=== PATIENT | male | born 1970 ===

== ENCOUNTER 2019-08-03 14:53 | Emergency (ER) | payer OTHER ==
--- NOTE | 2019-08-03 15:12 | ED ---
Fall HPI - General Chief Complaint: Fall Stated Complaint: back pain Time Seen by Provider: 08/03/19 14:56 Source: patient, EMS Mode of arrival: EMS - History of Present Illness Initial Comments: This is a 48-year-old male date ER status post fall. Patient is complaining of severe left arm pain and back pain unable to ambulate at the scene. No loss of consciousness. Patient was doing some work on a roof trying to reach fell off a platform he did land on his back and back onto his buttocks and back onto his back which he did catch himself with his hands severe left wrist pain. No.his head, no loss of consciousness patient denying drug or alcohol abuse today MD Complaint: fall -: hour(s) Fall From: standing When Fall Occurred: 1 hour [employer] Fall Witnessed: no Place Fall Occurred: home Loss of Consciousness: none Prolonged Down Time?: no Symptoms Prior to Fall: none Location: back Severity: mild Severity scale (1-10): 4 Quality: sharp, stabbing Context: tripped/slipped Associated Symptoms: denies - Related Data Home Medications Medication Instructions Recorded Confirmed Ibuprofen [Motrin Ib] 400 - 600 mg PO Q6H PRN 08/03/19 08/03/19 Previous Rx's Medication Instructions Recorded HYDROcodone/APAP 5-325MG [[place] 1 tab PO Q6HR PRN #12 tab 08/03/19 5-325] Allergies Allergy/AdvReac Type Severity Reaction Status Date / Time No Known Allergies Allergy Verified 08/03/19 17:31 Review of Systems ROS Statement: Those systems with pertinent positive or pertinent negative responses have been documented in the HPI. ROS Other: All systems not noted in ROS Statement are negative. Past Medical History Past Medical History: No Reported History Past Surgical History: No Surgical Hx Reported Smoking Status: Current every day smoker Past Alcohol Use History: Occasional Past Drug Use History: None Reported General Exam Limitations: no limitations General appearance: alert, in no apparent distress Head exam: Present: atraumatic, normocephalic, normal inspection Eye exam: Present: normal appearance, PERRL, EOMI. Absent: scleral icterus, conjunctival injection, periorbital swelling ENT exam: Present: normal exam, mucous membranes moist Neck exam: Present: normal inspection. Absent: tenderness, meningismus, lymphadenopathy Respiratory exam: Present: normal lung sounds bilaterally. Absent: respiratory distress, wheezes, rales, rhonchi, stridor Cardiovascular Exam: Present: regular rate, normal rhythm, normal heart sounds. Absent: systolic murmur, diastolic murmur, rubs, gallop, clicks GI/Abdominal exam: Present: soft, normal bowel sounds. Absent: distended, tenderness, guarding, rebound, rigid Extremities exam: Present: normal inspection, full ROM, normal capillary refill. Absent: tenderness, pedal edema, joint swelling, calf tenderness Back exam: Present: normal inspection Neurological exam: Present: alert, oriented X3, CN II-XII intact Psychiatric exam: Present: normal affect, normal mood Skin exam: Present: warm, dry, intact, normal color. Absent: rash Course Vital Signs 08/03/19 08/03/19 08/03/19 14:54 16:15 18:48 Temperature 97.8 F 98.2 F Pulse Rate 108 H 104 H 112 H Respiratory 22 19 20 Rate Blood Pressure 134/89 138/86 150/104 O2 Sat by Pulse 98 97 98 Oximetry 08/03/19 20:10 Temperature 97.8 F Pulse Rate 107 H Respiratory 18 Rate Blood Pressure 147/93 O2 Sat by Pulse 100 Oximetry - Reevaluation(s) Reevaluation #1: medical record has been reviewed patient is able to bear weight with cane here in the ER unable to ambulate pain is actually controlled no neurological deficit [facility] evaluation and treatment patient informed regarding symptoms to watch for regarding back fracture wrist fracture splinted here in the ER Procedures - Orthopedic Fracture Reduction Fracture #1 Consent Obtained: verbal consent Side: left Fracture Reduction Location: radius Analgesia: hematoma block Technique: direct manipulation, traction/counter-traction Post Reduction X-rays Demonstrate: anatomical reduction Post-Reduction Neuro Exam: intact Post-Reduction Vascular Exam: intact Splint Applied: Yes Patient Tolerated Procedure: well Medical Decision Making - Medical Decision Making 48 male to the ER for evaluation of significant trauma fall off roof, patient did sustain lumbar spine compression fracture as well as left radius fracture radius fracture was reduced here in the ER patient given a follow-up for orthopedics regarding pain control and brace - Lab Data Result diagrams: 08/03/19 17:25 08/03/19 17:25 Lab Results 08/03/19 08/03/19 08/03/19 Range/Units 15:10 16:00 16:00 WBC 11.1 H (3.8-10.6) k/uL RBC 4.84 (4.30-5.90) m/uL Hgb 15.6 (13.0-17.5) gm/dL Hct 44.3 (39.0-53.0) % MCV 91.7 (80.0-100.0) fL MCH 32.2 (25.0-35.0) pg MCHC 35.1 (31.0-37.0) g/dL RDW 12.3 (11.5-15.5) % Plt Count 291 (150-450) k/uL Neutrophils % 74 % Lymphocytes % 17 % Monocytes % 6 % Eosinophils % 1 % Basophils % 1 % Neutrophils # 8.2 H (1.3-7.7) k/uL Lymphocytes # 1.9 (1.0-4.8) k/uL Monocytes # 0.6 (0-1.0) k/uL Eosinophils # 0.1 (0-0.7) k/uL Basophils # 0.1 (0-0.2) k/uL PT 18.0 H (9.0-12.0) sec INR 1.8 H (<1.2) APTT 50.9 H (22.0-30.0) sec Sodium 142 (137-145) mmol/L Potassium 1.7 L* (3.5-5.1) mmol/L Chloride 128 H (98-107) mmol/L Carbon Dioxide 13 L (22-30) mmol/L Anion Gap 1 mmol/L BUN 8 L (9-20) mg/dL Creatinine 0.43 L (0.66-1.25) mg/dL Est GFR (CKD-EPI)AfAm >90 (>60 ml/min/1.73 sqM) Est GFR (CKD-EPI)NonAf >90 (>60 ml/min/1.73 sqM) Glucose 50 L (74-99) mg/dL Calcium 3.8 L* (8.4-10.2) mg/dL Phosphorus 1.2 L (2.5-4.5) mg/dL Magnesium 0.9 L* (1.6-2.3) mg/dL Total Bilirubin 0.3 (0.2-1.3) mg/dL AST 18 (17-59) U/L ALT 9 (4-49) U/L Alkaline Phosphatase 31 L (38-126) U/L Creatine Kinase 148 (55-170) U/L Troponin I (0.000-0.034) ng/mL Total Protein 2.8 L (6.3-8.2) g/dL Albumin 1.3 L (3.5-5.0) g/dL 08/03/19 08/03/19 08/03/19 Range/Units 16:00 17:25 17:25 WBC 17.6 H (3.8-10.6) k/uL RBC 4.78 (4.30-5.90) m/uL Hgb 15.4 (13.0-17.5) gm/dL Hct 44.0 (39.0-53.0) % MCV 92.0 (80.0-100.0) fL MCH 32.2 (25.0-35.0) pg MCHC 35.0 (31.0-37.0) g/dL RDW 12.1 (11.5-15.5) % Plt Count 279 (150-450) k/uL Neutrophils % 89 % Lymphocytes % 7 % Monocytes % 4 % Eosinophils % 0 % Basophils % 0 % Neutrophils # 15.5 H (1.3-7.7) k/uL Lymphocytes # 1.2 (1.0-4.8) k/uL Monocytes # 0.7 (0-1.0) k/uL Eosinophils # 0.1 (0-0.7) k/uL Basophils # 0.0 (0-0.2) k/uL PT (9.0-12.0) sec INR (<1.2) APTT (22.0-30.0) sec Sodium 139 (137-145) mmol/L Potassium 4.1 (3.5-5.1) mmol/L Chloride 108 H (98-107) mmol/L Carbon Dioxide 23 (22-30) mmol/L Anion Gap 8 mmol/L BUN 15 (9-20) mg/dL Creatinine 0.90 (0.66-1.25) mg/dL Est GFR (CKD-EPI)AfAm >90 (>60 ml/min/1.73 sqM) Est GFR (CKD-EPI)NonAf >90 (>60 ml/min/1.73 sqM) Glucose 98 (74-99) mg/dL Calcium 9.3 (8.4-10.2) mg/dL Phosphorus 2.9 (2.5-4.5) mg/dL Magnesium 1.9 (1.6-2.3) mg/dL Total Bilirubin 0.7 (0.2-1.3) mg/dL AST 38 (17-59) U/L ALT 25 (4-49) U/L Alkaline Phosphatase 92 (38-126) U/L Creatine Kinase (55-170) U/L Troponin I <0.012 (0.000-0.034) ng/mL Total Protein 7.1 (6.3-8.2) g/dL Albumin 4.2 (3.5-5.0) g/dL - EKG Data -: EKG Interpreted by Me (EKG shows sinus rhythm rate of 89, NV 128, QRS 142, QTC 485) - Radiology Data Radiology results: report reviewed (CT brain [place] chest and pelvis does show positive lumbar spine fracture x-ray left wrist prereduction does show displaced radial fracture, improved after reduction), image reviewed Critical Care Time Critical Care Time: Yes Total Critical Care Time: 31 Disposition Clinical Impression: Fall, Weakness, Lumbar compression fracture, Wrist fracture, left Disposition: HOME SELF-CARE Condition: Good Instructions (If sedation given, give patient instructions): Wrist Fracture in Adults (ED), Vertebral Compression Fracture (ED) Prescriptions: HYDROcodone/APAP 5-325MG [[place] 5-325] 1 tab PO Q6HR PRN #12 tab PRN Reason: Pain Is patient prescribed a controlled substance at d/c from ED?: Yes When asked, does pt state using other controlled substances?: No If prescribed controlled substance>3 days was MAPS reviewed?: Prescribed <3 Days Referrals: Carl Love MD [Medical Doctor] - 1-2 days Fabiana Mahajan DO [Doctor of Osteopathic Medicine] - 1-2 days
[2019-08-03] MEDS ORDERED: SODIUM CHLORIDE 0.9% 1,000 ML IV STA (15:24)
[2019-08-03 15:52] LABS: Basophils # (A) 0.1 k/uL (0-0.2); Basophils % (A) 1 %; Eosinophils # (A) 0.1 k/uL (0-0.7); Eosinophils % (A) 1 %; HCT 44.3 % (39.0-53.0); HGB 15.6 gm/dL (13.0-17.5); Lymphocytes # (A) 1.9 k/uL (1.0-4.8); Lymphocytes % (A) 17 %; MCH 32.2 pg (25.0-35.0); MCHC 35.1 g/dL (31.0-37.0); MCV 91.7 fL (80.0-100.0); Mean Platelet Volume 8.7; Monocytes # (A) 0.6 k/uL (0-1.0); Monocytes % (A) 6 %; Neutrophils # (A) 8.2 k/uL (1.3-7.7); Neutrophils % (A) 74 %; Platelet Count 291 k/uL (150-450); RBC 4.84 m/uL (4.30-5.90); RDW 12.3 % (11.5-15.5); WBC 11.1 k/uL (3.8-10.6)
[2019-08-03] MEDS ORDERED: HYDROmorphone 0.5 MG/0.5 ML SYRINGE IVP STA (16:00)
[2019-08-03] MEDS ORDERED: ONDANSETRON 4 MG/2 ML VIAL IVP STA (16:09)
--- NOTE | 2019-08-03 16:13 | CT ---
EXAMINATION TYPE: CT brain sergio boyd DATE OF EXAM: 08/03/2019 COMPARISON: None HISTORY: 12 foot fall from roof, landing on back. CT DLP: 1484.[address] Brain: Unenhanced CT of the brain was performed. The ventricles, basal cisterns and sulci overlying the cerebral convexities demonstrate a normal appe arance. There is no evidence for intracranial hemorrhage or sulcal effacement. No mass effects are seen. If symptoms persist consider MRI. Osseous calvarium is intact. IMPRESSION: No acute intracranial process CT Cervical Spine: Unenhanced CT of the cervical spine was performed with bone and soft tissue window settings submitted . Coronal and sagittal reconstruction is obtained. There is normal alignment and prevertebral soft tissues. Well-corticated ossific densities adjacent t o the spinous processes likely reflective of remote avulsion fractures or calcification of the slope runner ior longitudinal ligament. I do not see evidence for fracture or subluxation. No significant degene rative changes are present. The lung apices are clear. IMPRESSION: No evidence for acute fracture or subluxation of the cervical spine.
--- NOTE | 2019-08-03 16:19 | CT ---
EXAMINATION TYPE: CT ChestAbdPelvis w con DATE OF EXAM: 08/03/2019 COMPARISON: HISTORY: 12 foot fall from roof, landing on back. Back pain and left wrist pain. CT DLP: 893.6 mGycm CONTRAST: Contrast enhanced Trauma CT of the Chest, Abdomen and Pelvis is performed with IV Contrast, patient i njected with 100 mL of Isovue 300. Chest: LUNGS: There is no evidence for pneumothorax. The lungs are clear and free of focal contusion or ate lectasis. No pleural effusion MEDIASTINUM: Thoracic aorta is of normal caliber without CT evidence to suggest traumatic induced ao rtic injury. No mediastinal fluid or blood. No pericardial fluid or cardia abnormality. HILAR STRUCTURES: No evidence for mass. No hilar adenopathy is appreciated. OTHER: No significant abnormality. OSSEOUS: No displaced thoracic osseous fractures identified. CT ABDOMEN AND PELVIS FINDINGS: LIVER/GB: No focal laceration, contusion or subcapsular hemorrhage. No calcified gallstones. No s pace occupying hepatic lesion. Biliary tree is of normal caliber. PANCREAS: No evidence for transection. No inflammation. No distinct mass. SPLEEN: No focal laceration, contusion or subcapsular hemorrhage. ADRENALS: No hemorrhage. No nodule. No thickening. KIDNEYS/BLADDER: No focal laceration, contusion or subcapsular hemorrhage. No hydronephrosis. No n ephrolithiasis. No disctinct renal mass. BOWEL: Bowel is intact. No evidence for pneumoperitoneum. GENITAL ORGANS: No gross abnormality. LYMPH NODES: No greater than 1cm abdominal or pelvic lymph nodes are appreciated. AORTA: No traumatic aortic injury visualized. OSSEOUS STRUCTURES: Compression fracture superior endplate of T12 with a minimal bony retropulsion n oted measuring 2 mm. Loss of height is estimated at 50%. No additional fractures identified. OTHER: No evidence for hemoperitoneum. IMPRESSION: 1. No evidence for traumatic injury to the chest. 2. No evidence for traumatic injury to the abdomen or pelvis. 3.Compression fracture superior endplate of T12 with a minimal bony retropulsion noted measuring 2 mm . Loss of height is estimated at 50%.
[2019-08-03 16:36] LABS: ALT 9 U/L (4-49); AST 18 U/L (17-59); African American GFR (CKD) >90 (>60 ml/min/1.73 sqM); Albumin 1.3 g/dL (3.5-5.0); Alkaline Phosphatase 31 U/L (38-126); Anion Gap 1 mmol/L; Blood Urea Nitrogen 8 mg/dL (9-20); Carbon Dioxide 13 mmol/L (22-30); Chloride 128 mmol/L (98-107); Creatine Kinase 148 U/L (55-170); Glucose 50 mg/dL (74-99); Non-African American GFR(CKD) >90 (>60 ml/min/1.73 sqM); Phosphorus 1.2 mg/dL (2.5-4.5); Sodium 142 mmol/L (137-145); Total Bilirubin 0.3 mg/dL (0.2-1.3); Total Protein 2.8 g/dL (6.3-8.2)
[2019-08-03 16:43] LABS: Calcium 3.8 mg/dL (8.4-10.2); Magnesium 0.9 mg/dL (1.6-2.3)
[2019-08-03 16:47] LABS: Potassium 1.7 mmol/L (3.5-5.1)
[2019-08-03 16:48] LABS: INR 1.8 (<1.2); Partial Thromboplastin Time 50.9 sec (22.0-30.0)
--- NOTE | 2019-08-03 17:09 | XR ---
EXAMINATION TYPE: XR wrist limited LT DATE OF EXAM: 08/03/2019 COMPARISON: NONE HISTORY: Pain TECHNIQUE: 2 views FINDINGS: There is impacted transverse comminuted fracture of the distal radius. There is approximate 8 mm posterior displacement of the distal radius. Distal ulna is intact. Carpal bones are intact. Th ere is no dislocation. IMPRESSION: Impacted comminuted distal radius fracture.
[2019-08-03] MEDS ORDERED: LIDOCAINE 1%-EPI 1:100,000 20 ML VIAL SQ STA (17:25)
[2019-08-03 17:47] LABS: ALT 25 U/L (4-49); AST 38 U/L (17-59); African American GFR (CKD) >90 (>60 ml/min/1.73 sqM); Albumin 4.2 g/dL (3.5-5.0); Alkaline Phosphatase 92 U/L (38-126); Anion Gap 8 mmol/L; Basophils % (A) 0 %; Blood Urea Nitrogen 15 mg/dL (9-20); Calcium 9.3 mg/dL (8.4-10.2); Carbon Dioxide 23 mmol/L (22-30); Chloride 108 mmol/L (98-107); Eosinophils # (A) 0.1 k/uL (0-0.7); Eosinophils % (A) 0 %; Glucose 98 mg/dL (74-99); HGB 15.4 gm/dL (13.0-17.5); Lymphocytes # (A) 1.2 k/uL (1.0-4.8); Lymphocytes % (A) 7 %; MCH 32.2 pg (25.0-35.0); Magnesium 1.9 mg/dL (1.6-2.3); Mean Platelet Volume 8.3; Monocytes # (A) 0.7 k/uL (0-1.0); Monocytes % (A) 4 %; Neutrophils # (A) 15.5 k/uL (1.3-7.7); Neutrophils % (A) 89 %; Non-African American GFR(CKD) >90 (>60 ml/min/1.73 sqM); Phosphorus 2.9 mg/dL (2.5-4.5); Platelet Count 279 k/uL (150-450); Potassium 4.1 mmol/L (3.5-5.1); RBC 4.78 m/uL (4.30-5.90); RDW 12.1 % (11.5-15.5); Sodium 139 mmol/L (137-145); Total Bilirubin 0.7 mg/dL (0.2-1.3); Total Protein 7.1 g/dL (6.3-8.2); WBC 17.6 k/uL (3.8-10.6)
--- NOTE | 2019-08-03 19:21 | XR ---
EXAMINATION TYPE: XR wrist limited LT DATE OF EXAM: 08/03/2019 COMPARISON: Today HISTORY: Post reduction TECHNIQUE: 2 views FINDINGS: There is impacted comminuted fracture distal radius. There is mild anterior angulation at t he fracture site on the lateral view. Impaction appears slightly decreased compared to initial exam. IMPRESSION: Impacted comminuted distal radius fracture with slight reduction compared to initial exam .
[2019-08-03] MEDS ORDERED: MORPHINE SULFATE 4 MG/ML SYRINGE IVP STA (19:57)
[2019-08-03] MEDS ORDERED: HYDROcodone/APAP 5-325MG 1 EACH TAB PO STA (19:57)
[2019-08-03 20:19] VITALS: BP 147/93; PULSE 107; RESP 18; TEMP 97.8
== END 2019-08-03 20:10 | disposition home or self-care (01) ==
LOC: EC 14:53
DX: S52.592A Other fractures of lower end of left radius, initial encounter for closed fracture (principal); S32.008A Other fracture of unspecified lumbar vertebra, initial encounter for closed fracture; S22.088A Other fracture of T11-T12 vertebra, initial encounter for closed fracture; R53.1 Weakness; F17.200 Nicotine dependence, unspecified, uncomplicated; W17.89XA Other fall from one level to another, initial encounter; Y93.89 Activity, other specified; Y92.69 Other specified industrial and construction area as the place of occurrence of the external cause
CPT/HCPCS: 36415; 93005; 80053; 82550; 83735; 84100; 84484; 85025; 85610; 85730; 73100; 72125; 70450; 71260; 74177; 96374; 96375 ×2; 96361 ×2; 99285; J2270; J2405; J1170; Q9967

== ENCOUNTER 2019-08-15 09:44 | Day surgery (SDC) | payer OTHER ==
[2019-08-15 10:07] VITALS: TEMP 97.9
[2019-08-15 11:16] LABS: Prothrombin Time 10.4 sec (9.0-12.0)
--- NOTE | 2019-08-15 12:09 | P.HPOR ---
History of Present Illness H&P Date: 08/15/19 Chief Complaint: left wrist fracture The patient is a pleasant 48-year-old male who sustained a displaced left distal radius fracture after a mechanical fall from a roof on 08/03/19. The injury also resulted in a T12 compression fracture. He denies loss of consciousness or other injuries associated with this fall. Denies any numbness and tingling. Pain is relatively well controlled with hydrocodone. He has a current, every day smoker. Past Medical History Past Medical History: No Reported History History of Any Multi-Drug Resistant Organisms: None Reported Past Surgical History: No Surgical Hx Reported Past Anesthesia/Blood Transfusion Reactions: No Reported Reaction Past Psychological History: No Psychological Hx Reported Smoking Status: Current every day smoker Past Alcohol Use History: Occasional Past Drug Use History: None Reported Medications and Allergies Home Medications Medication Instructions Recorded Confirmed Type HYDROcodone/APAP 5-325MG [[place] 1 tab PO Q6HR PRN #12 tab 08/03/19 Rx 5-325] Ibuprofen [Motrin Ib] 400 - 600 mg PO Q6H PRN 08/03/19 08/03/19 History Allergies Allergy/AdvReac Type Severity Reaction Status Date / Time No Known Allergies Allergy Verified 08/03/19 17:31 Physical Examination Constitution: Normal stature and development; appears stated age HEENT: Normocephalic & atraumatic Cardiovascular: Regular rate & rhythm Pulmonary: Unlabored respiratory effort without audible wheeze or conversational dyspnea Abdomen: Soft, nontender & nondistended Integumentary: No rashes or skin lesions noted in the examined areas Psychiatric: Patient interacts appropriately and is alert & oriented to person, place, time and purpose Musculoskeletal: Splint is in place on the left wrist and was loosened. There is minimal edema. No blisters or ulcerations. Visible extension deformity at the distal radius and appropriate bony tenderness to palpation. Light touch sensation is subjectively intact throughout the distal radial, median and ulnar nerve distributions without focal deficit. The hand is warm, dry and well-perfused with brisk capillary refill. Results X-rays dated 08/03/19 were reviewed and interpreted from an orthopedic standpoint: These demonstrate a displaced, extra-articular left distal radius fracture with dorsal angulation of 30 from neutral. No obvious intra-articular extension. No associated ulnar styloid fracture. - Labs Labs: Coagulation 08/15/19 Range/Units 10:50 INR 1.0 (<1.2) Assessment and Plan Assessment: 1. Displaced extra-articular left distal radius fracture status post fall on 08/03/19 2. T12 compression fracture 3. Nicotine addiction/tobacco abuse Plan: The patient was seen and evaluated in the office. Treatment options were presented, including closed reduction and casting versus open reduction and internal fixation. Based on the amount of displacement, I recommended surgical stabilization. Risks and benefits were discussed. He expressed understanding, acceptance of the risks and wished to proceed with surgery.
[2019-08-15] MEDS ORDERED: LACTATED RINGERS 1,000 ML IV ONE ×4 (13:49→15:23)
[2019-08-15] MEDS ORDERED: MIDAZOLAM 2 MG/2 ML VIAL IVP ONE (14:01)
[2019-08-15] MEDS ORDERED: LIDOCAINE 1% INJ 10MG/ML (20 ML MDV) ONE (14:12)
[2019-08-15] MEDS ORDERED: ONDANSETRON 4 MG/2 ML VIAL ONE (14:12)
[2019-08-15] MEDS ORDERED: ROPIVACAINE 5 MG/ML 30 ML VIAL ONE (14:12)
[2019-08-15] MEDS ORDERED: ROPIVACAINE 5MG/ML 20ML VIAL MISCELLANE ONE ×2 (14:12→17:08)
[2019-08-15] MEDS ORDERED: PROPOFOL 10 MG/ML 20 ML VIAL IV ONE (14:12)
[2019-08-15] MEDS ORDERED: fentaNYL (PF) 50 MCG/ML 2 ML AMP ONE (14:12)
[2019-08-15] MEDS ORDERED: SUCCINYLCHOLINE CHLORIDE 100 MG/5 ML SYR IV ONE (14:12)
[2019-08-15] MEDS ORDERED: LIDOCAINE 1%-EPI 1:100,000 20 ML VIAL SQ ONE ×2 (14:12→17:08)
[2019-08-15] MEDS ORDERED: DEXAMETHASONE SOD PHOS (MDV) 100 MG/10 ML VIAL ONE (14:12)
[2019-08-15] MEDS ORDERED: DEXAMETHASONE SOD PHOSPHATE 4 MG/ML 1 ML VIAL ONE (14:12)
--- NOTE | 2019-08-15 14:30 | P.ANPRN ---
Procedure Note - Anesthesia - Nerve Block Performed Left Supraclavicular Time Out Performed: Yes (13:59) Date of Procedure: 08/15/19 Procedure Start Time: 13:59 Procedure Stop Time: 14:07 Location of Patient: PreOp Indication: Acute Post-Operative Pain, Requested by Surgeon (Dr Bethea) Sedation Type: Sedate with meaningful contact maintained Preparation: Sterile Prep Position: Supine Catheter: None Needle Types: Pajunk Needle Gauge: Other (see comment) (22) Ultrasound used to visualize needle placement: Yes Ultrasound used to observe medication spread: Yes Injectate: 0.5% Ropivacaine (see comment for volume) (20cc, decadron 4mg) Blood Aspirated: No Pain Paresthesia on Injection Noted: No Resistance on Injection: Normal Image Stored and Saved: Yes Events: Uneventful and Well Tolerated
[2019-08-15 17:38] VITALS: RESP 16
[2019-08-15 17:51] VITALS: BP 129/70; PULSE 93
--- NOTE | 2019-08-15 22:03 | XR ---
EXAMINATION TYPE: XR wrist limited LT DATE OF EXAM: 08/15/2019 COMPARISON: 08/03/2019 TECHNIQUE: Two views submitted HISTORY: Post op FINDINGS: There is a comminuted intra-articular fracture of the distal radius. Resolution is limited. Mild disp lacement persists but appears improved from the prior exam. IMPRESSION: 1. Postoperative change
--- NOTE | 2019-08-15 22:03 | FL ---
EXAMINATION TYPE: FL guidance operating room DATE OF EXAM: 08/15/2019 HISTORY: Flouroscopy time 1 minute and 16 seconds of fluoroscopy provided. IMPRESSION: 1. Fluoroscopy time.
--- NOTE | 2019-08-21 06:40 | P.OP ---
Date of Procedure: 08/15/19 Preoperative Diagnosis: Displaced left distal radius fracture Postoperative Diagnosis: Displaced intra-articular left distal radius fracture Procedure(s) Performed: Open reduction and internal fixation of displaced intra-articular left distal radius fracture (greater than 3 parts) Implants: Acumed Acu-Loc 2 standard left volar distal radius plate with locking and cortical screws Anesthesia: GETA, regional, local Surgeon: Spencer Bethea Estimated Blood Loss (ml): 25 Condition: stable Disposition: PACU Indications for Procedure: The patient is a pleasant 48-year-old male who sustained a displaced left distal radius fracture after a 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 Treatment options were discussed in the office and operative treatment was recommended. Risks and benefits were reviewed including (but not limited to) the risks of infection, bleeding, injury to tendons and neurovascular structures, malunion and possible need for additional surgery. He expressed understanding and wished to proceed with surgery. In preop, the surgical site was confirmed and marked. Consent forms were signed. Description of Procedure: The patient was administered a regional nerve block by the anesthesia team and then was brought to the operating suite. He was positioned supine with the operative limb on a hand table. Anesthesia and prophylactic IV antibiotics were administered. All bony prominences were well-padded. A tourniquet was placed on the left arm, which was then prepped and draped in standard, sterile fashion. A timeout was performed, confirming patient identifiers, the operative side, the site and the procedure to be performed: all team members expressed agreement. A standard volar FCR approach was utilized. The skin was incised sharply, curving gently across the wrist flexion crease. The subcutaneous tissues were bluntly spread. The radial artery was identified and protected throughout the case. The FCR sheath was incised and the tendon was mobilized. The floor of the sheath was released and blunt dissection proceeded down to the pronator quadratus, which was sharply incised along its radial border and subperiosteally elevated in an ulnar direction. The fracture site was visualized. There was a transverse split across the metaphysis and a separate volar ulnar fragment with some comminution of the volar metaphysis. A Zaleski was inserted into the fracture site to release the dorsal capsule and mobilized the fracture fragments, taking care to protect the extensor tendons. A 0.062 K wire was introduced percutaneously into the radial styloid. The fracture was manually reduced, using a combination of axial traction, ulnar deviation and palmar translation. With the fracture held reduced, the wire was advanced across the fracture site. Good provisional reduction was achieved. A second wire was inserted in a similar fashion for additional stability. The plate was selected, based on the patients anatomy and fracture pattern, and was placed on the volar radius. Its position was adjusted until satisfactory (confirmed on imaging) and then it was pinned in place with K wires. A cortical screw was drilled, measured and inserted into the oblong hole of the shaft. Locking screws were drilled, measured and inserted to secure the styloid fragment. There was residual depression of the lunate fossa fragment. The percutaneous and distal K wires through the plate were removed. A Zaleski was inserted between the fracture fragments to elevate the articular surface and the temporary K wire was reinserted through the plate. The remaining distal locking screws were drilled, measured and inserted. The most proximal ulnar hole was not used, as it was directly over a fracture line. Final x-rays were obtained, including an inclined lateral view to confirm extra- articular screw placement. The wrist was then ranged under live fluoroscopy - no motion of the fracture fragments or fixation construct was appreciated. The wound was copiously irrigated with normal saline. The tourniquet was released after 116 minutes at 250 mmHg and was not used for the remainder of the case. Hemostasis was obtained with manual pressure and electrocautery; however, there was mild diffuse sanguinous drainage from multiple small areas, including the fracture site, due to the metaphyseal comminution. The incision was closed with interrupted 3-0 and 4-0 nylon sutures. Sterile dressings were applied, followed by a short arm plaster splint. All sponge, needle and instrument counts were correct at the end of the case. The patient tolerated the procedure well. He was awakened uneventfully and taken to the recovery room in stable condition.
== END 2019-08-15 18:57 | disposition home or self-care (01) ==
LOC: OR 09:44 → 4SSUR 09:45 → OR 18:57
PROVIDERS: ATTEND Orthopaedic Surgery
DX: S52.572A Other intraarticular fracture of lower end of left radius, initial encounter for closed fracture (principal); S22.080A Wedge compression fracture of T11-T12 vertebra, initial encounter for closed fracture; F17.210 Nicotine dependence, cigarettes, uncomplicated; W13.2XXA Fall from, out of or through roof, initial encounter
CPT/HCPCS: 64415; 76942; 85610; 73100; 25609; C1713; J2250; J1100 ×2; J0690; J2405; J2001; J3010; J2795 ×2; J0330; J2704

== ENCOUNTER 2020-04-19 18:06 | Emergency (ER) | payer OTHER ==
[2020-04-19 18:19] VITALS: RESP 18
[2020-04-19] MEDS ORDERED: LABETALOL 5 MG/ML VIAL MDV IVP STA (18:26)
--- NOTE | 2020-04-19 18:29 | ED ---
General Adult HPI - General Chief complaint: Recheck/Abnormal Lab/Rx Stated complaint: High blood pressure Time Seen by Provider: 04/19/20 18:08 Source: patient, RN notes reviewed, old records reviewed Mode of arrival: EMS Limitations: no limitations - History of Present Illness Initial comments: Patient is a pleasant 49-year-old male presenting to the emergency Department with complaints of reported high blood pressure. Patient states since he has b een in [facility], which has been around 4 weeks now he has been placed on Catapres, patient takes this once in the morning. Patient states occasionally he takes it also in the evening if his blood pressures running high. Patient did have a second dose today around 5:00. Patient states he asked have his blood pressure checked because he felt a little bit lightheaded. This is resolved. No palpitations. No chest pain or dyspnea. Patient is unaware of any history of previous hypertension, patient last saw his doctor less than a year ago. No weakness or confusion. - Related Data Home Medications Medication Instructions Recorded Confirmed Ibuprofen [Motrin Ib] 400 - 600 mg PO Q6H PRN 08/03/19 08/03/19 Previous Rx's Medication Instructions Recorded HYDROcodone/APAP 5-325MG [[place] 1 tab PO Q6HR PRN #12 tab 08/03/19 5-325] atenoloL [Atenolol] 25 mg PO DAILY #7 tablet 04/19/20 Allergies Allergy/AdvReac Type Severity Reaction Status Date / Time No Known Allergies Allergy Verified 04/19/20 18:19 Review of Systems ROS Statement: Those systems with pertinent positive or pertinent negative responses have been documented in the HPI. ROS Other: All systems not noted in ROS Statement are negative. Constitutional: Denies: fever Eyes: Denies: eye pain ENT: Denies: ear pain Respiratory: Denies: cough, dyspnea Cardiovascular: Denies: chest pain, palpitations Endocrine: Denies: fatigue Gastrointestinal: Denies: abdominal pain Genitourinary: Denies: dysuria Musculoskeletal: Denies: back pain Skin: Denies: rash Neurological: Denies: headache, weakness, confusion, abnormal gait Past Medical History Past Medical History: Hypertension History of Any Multi-Drug Resistant Organisms: None Reported Past Surgical History: Back Surgery, Orthopedic Surgery Past Anesthesia/Blood Transfusion Reactions: No Reported Reaction Past Psychological History: No Psychological Hx Reported Smoking Status: Former smoker Past Alcohol Use History: Occasional Past Drug Use History: None Reported General Exam Limitations: no limitations General appearance: alert, in no apparent distress Head exam: Present: normocephalic Eye exam: Present: normal appearance, PERRL, EOMI ENT exam: Present: normal oropharynx Neck exam: Present: normal inspection Respiratory exam: Present: normal lung sounds bilaterally Cardiovascular Exam: Present: tachycardia Expanded Peripheral pulses: 2+: Radial (R), Radial (L), Dorsalis Pedis (R), Dorsalis Pedis (L) GI/Abdominal exam: Present: soft. Absent: tenderness Extremities exam: Present: normal inspection. Absent: pedal edema, calf tenderness Neurological exam: Present: alert, oriented X3, CN II-XII intact. Absent: motor sensory deficit Expanded Neurological exam: Present: protecting the airway Speech: Present: fluid speech Cranial nerves: EOM's Intact: Normal Sensory exam: Upper Extremity Light Touch: Normal, Lower Extremity Light Touch: Normal Motor strength exam: RUE: 5, LUE: 5, RLE: 5, LLE: 5 Eye Response: (4) open spontaneously Motor Response: (6) obeys commands Verbal Response: (5) oriented Psychiatric exam: Present: normal affect, normal mood Skin exam: Present: normal color Course Vital Signs 04/19/20 04/19/20 18:14 19:18 Temperature 98.7 F 98.8 F Pulse Rate 122 H 97 Respiratory 18 18 Rate Blood Pressure 182/107 131/53 O2 Sat by Pulse 96 96 Oximetry EKG Findings - EKG Comments: EKG Findings:: Sinus tachycardia 122. CA 148. QRS 140. QT 346. QTc 493. Left axis. Right bundle branch block. Inferior Q waves. No acute ST change. Medical Decision Making - Medical Decision Making Patient reevaluated. Patient has had several appropriate blood pressures. Patient states he is feeling fine and has no complaints. Patient updated on results and plan. Patient states he is on lisinopril however believes it is onl y 1 mg. Patient will be prescribed low-dose beta meseret to start instead of Catapres with close follow-up with primary care physician or [facility] doctor. - Lab Data Result diagrams: 04/19/20 18:28 04/19/20 18:28 Lab Results 04/19/20 04/19/20 04/19/20 Range/Units 18:28 18:28 19:06 WBC 10.1 (3.8-10.6) k/uL RBC 5.18 (4.30-5.90) m/uL Hgb 15.9 (13.0-17.5) gm/dL Hct 47.1 (39.0-53.0) % MCV 90.9 (80.0-100.0) fL MCH 30.7 (25.0-35.0) pg MCHC 33.7 (31.0-37.0) g/dL RDW 12.2 (11.5-15.5) % Plt Count 325 (150-450) k/uL Neutrophils % 60 % Lymphocytes % 31 % Monocytes % 4 % Eosinophils % 3 % Basophils % 1 % Neutrophils # 6.1 (1.3-7.7) k/uL Lymphocytes # 3.1 (1.0-4.8) k/uL Monocytes # 0.4 (0-1.0) k/uL Eosinophils # 0.3 (0-0.7) k/uL Basophils # 0.1 (0-0.2) k/uL Sodium 135 L (137-145) mmol/L Potassium 4.3 (3.5-5.1) mmol/L Chloride 100 (98-107) mmol/L Carbon Dioxide 24 (22-30) mmol/L Anion Gap 11 mmol/L BUN 10 (9-20) mg/dL Creatinine 0.59 L (0.66-1.25) mg/dL Est GFR (CKD-EPI)AfAm >90 (>60 ml/min/1.73 sqM) Est GFR (CKD-EPI)NonAf >90 (>60 ml/min/1.73 sqM) Glucose 171 H (74-99) mg/dL Calcium 9.6 (8.4-10.2) mg/dL Phosphorus 2.9 (2.5-4.5) mg/dL Magnesium 1.8 (1.6-2.3) mg/dL Total Bilirubin 0.4 (0.2-1.3) mg/dL AST 55 (17-59) U/L ALT 73 H (4-49) U/L Alkaline Phosphatase 111 (38-126) U/L Total Protein 7.7 (6.3-8.2) g/dL Albumin 4.6 (3.5-5.0) g/dL TSH 0.869 (0.465-4.680) mIU/L Urine Color Yellow Urine Appearance Clear (Clear) Urine pH 5.5 (5.0-8.0) Ur Specific [place] 1.013 (1.001-1.035) Urine Protein Negative (Negative) Urine Glucose (UA) Negative (Negative) Urine Ketones Negative (Negative) Urine Blood Negative (Negative) Urine Nitrite Negative (Negative) Urine Bilirubin Negative (Negative) Urine Urobilinogen <2.0 (<2.0) mg/dL Ur Leukocyte Esterase Negative (Negative) - Radiology Data Radiology results: image reviewed (Chest x-ray shows atelectasis) Disposition Clinical Impression: Hypertension Disposition: HOME SELF-CARE Condition: Stable Instructions (If sedation given, give patient instructions): Hypertension (ED) Additional Instructions: Please follow-up with either primary care physician or [facility] physician in the next couple of days for further blood pressure management. Prescription prescribed for beta meseret. Please attempt to use this instead of Catapres. Return for uncontrolled blood pressure, worsening or change in symptoms, or any other concerns. Prescriptions: atenoloL [Atenolol] 25 mg PO DAILY #7 tablet Is patient prescribed a controlled substance at d/c from ED?: No Referrals: Champ Crowder MD [Primary Care Provider] - 1-2 days Time of Disposition: 19:42
[2020-04-19 18:44] LABS: Basophils # (A) 0.1 k/uL (0-0.2); Basophils % (A) 1 %; Eosinophils # (A) 0.3 k/uL (0-0.7); Eosinophils % (A) 3 %; HCT 47.1 % (39.0-53.0); HGB 15.9 gm/dL (13.0-17.5); Lymphocytes # (A) 3.1 k/uL (1.0-4.8); Lymphocytes % (A) 31 %; MCH 30.7 pg (25.0-35.0); MCHC 33.7 g/dL (31.0-37.0); MCV 90.9 fL (80.0-100.0); Mean Platelet Volume 7.8; Monocytes # (A) 0.4 k/uL (0-1.0); Monocytes % (A) 4 %; Neutrophils # (A) 6.1 k/uL (1.3-7.7); Neutrophils % (A) 60 %; Platelet Count 325 k/uL (150-450); RBC 5.18 m/uL (4.30-5.90); RDW 12.2 % (11.5-15.5); WBC 10.1 k/uL (3.8-10.6)
[2020-04-19 18:50] LABS: ALT 73 U/L (4-49); AST 55 U/L (17-59); African American GFR (CKD) >90 (>60 ml/min/1.73 sqM); Albumin 4.6 g/dL (3.5-5.0); Alkaline Phosphatase 111 U/L (38-126); Anion Gap 11 mmol/L; Blood Urea Nitrogen 10 mg/dL (9-20); Calcium 9.6 mg/dL (8.4-10.2); Carbon Dioxide 24 mmol/L (22-30); Chloride 100 mmol/L (98-107); Glucose 171 mg/dL (74-99); Magnesium 1.8 mg/dL (1.6-2.3); Non-African American GFR(CKD) >90 (>60 ml/min/1.73 sqM); Phosphorus 2.9 mg/dL (2.5-4.5); Potassium 4.3 mmol/L (3.5-5.1); Sodium 135 mmol/L (137-145); Total Bilirubin 0.4 mg/dL (0.2-1.3); Total Protein 7.7 g/dL (6.3-8.2)
--- NOTE | 2020-04-19 18:52 | XR ---
EXAMINATION TYPE: XR chest 2V DATE OF EXAM: 04/19/2020 COMPARISON: NONE HISTORY: Hypertension TECHNIQUE: 2 views FINDINGS: There is no heart failure nor confluent pneumonic infiltrate. There is small area of subseg mental atelectasis left lung base. There are chest leads. Bony thorax is intact. Heart size is normal . IMPRESSION: Subsegmental atelectasis left lung base. Normal heart.
[2020-04-19 19:19] VITALS: TEMP 98.8
[2020-04-19 19:29] LABS: Appearance,Urine Clear (Clear); Bilirubin,Urine Negative (Negative); Blood,Urine Negative (Negative); Color,Urine Yellow; Glucose,Urine (UA) Negative (Negative); Ketones,Urine Negative (Negative); Leukocyte Esterase,Urine Negative (Negative); Nitrite,Urine Negative (Negative); PH, Urine 5.5 (5.0-8.0); Protein,Urine Negative (Negative); Specific Gravity,Urine 1.013 (1.001-1.035); Urobilinogen,Urine <2.0 mg/dL (<2.0)
[2020-04-19 20:03] VITALS: BP 123/89; PULSE 92
== END 2020-04-19 20:03 | disposition home or self-care (01) ==
LOC: EC 18:06
DX: I10 Essential (primary) hypertension (principal); R00.0 Tachycardia, unspecified; Z79.899 Other long term (current) drug therapy; Z87.891 Personal history of nicotine dependence
CPT/HCPCS: 36415; 71046; 80053; 81003; 83735; 84100; 84443; 85025; 93005; 96374; 99284